=== PATIENT | female | born 1995 ===

== ENCOUNTER 2017-10-10 23:12 | Emergency (ER) | payer SELFPAY ==
[2017-10-10 23:21] VITALS: RESP 16
[2017-10-11] MEDS ORDERED: AZITHROMYCIN 250 MG TAB PO ONE (00:02)
--- NOTE | 2017-10-11 00:19 | EDPHY ---
H & P Time Seen by Provider: 10/10/17 23:24 HPI/ROS: This patient was playing co-ed soccer when a male player inadvertently ran into her right orbital region with shoulder. This occurred earlier in the night she initially had moderate pain and brief diplopia. The diplopia resolved after several minutes and she reported a moderate ache to the right periorbital region without other symptoms until she blew her nose and noticed immediate "puffiness" that resulted in the infraorbital region. Patient had 6/10 pain initially that diminish to 4/10 after taking 400 mg of ibuprofen prior to arrival. This prompted her visit for further evaluation. Her boyfriend drove her in by private vehicle for evaluation. ROS: Constitutional: No complaints HEENT: No nasal injury. No other complaints. No persistent vision changes. Neuro: No generalized headache. No confusion. No numbness or tingling that she initially had paresthesias for few minutes after the injury they have resolved. Musculoskeletal: No neck pain or back pain. No extremity injuries. Integumentary: No lacerations or abrasions. 7 point ROS is otherwise negative. Past Medical/Surgical History: Otherwise healthy Smoking Status: Never smoked Physical Exam: Physical exam: Vital signs are normal General: Patient is in no acute distress. HEENT: Patient has mild right periorbital swelling and infraorbital and tenderness. No zygoma tenderness. No nasal tenderness or ecchymosis. No epistaxis. Ears: Clear bilaterally with no hemotympanum. Oropharynx: No dental trauma or malocclusion. No intraoral lacerations. Eyes: Visual acuity is 20/20 OS, 20/40 on injured I the patient reports that 20 /40 is baseline for her right eye. There is no hyphema. Pupils are equal and reactive to light. Extraocular motions are intact. She does not have diplopia with upward gaze or other extraocular motions at this time. Optic fundi: Clear with no papilledema or hemorrhage. Neck: Trachea is midline with no stridor. The patient has no midline neck tenderness and retains a full range of motion without increase in pain. Lungs: Clear to auscultation bilaterally Cardiac: Regular rate and rhythm no murmur gallop or rub. Chest: Nontender. Abdomen: Soft nontender no organomegaly Back: Nontender Extremities: Atraumatic Neuro: GCS of 15. Cranial nerves II through XII intact. No sensory or motor deficits are appreciated. Initial differential diagnosis: Periorbital hematoma, orbital floor blowout fracture, ocular injury Constitutional: Initial Vital Signs Temperature (C) 36.8 C 10/10/17 23:19 Heart Rate 62 10/10/17 23:19 Respiratory Rate 16 10/10/17 23:19 Blood Pressure 115/71 10/10/17 23:19 O2 Sat (%) 94 10/10/17 23:19 O2 Delivery Mode Room Air Allergies/Adverse Reactions: cat dander Allergy (Intermediate, Verified 10/10/17 23:22) dog dander Allergy (Intermediate, Verified 10/10/17 23:22) pollen extracts Allergy (Intermediate, Verified 10/10/17 23:22) Home Medications: Medication Instructions Recorded Allergy Shots 10/10/17 Azithromycin [Zithromax] 250 mg PO DAILY #4 tab 10/11/17 MDM/Departure - MDM Diagnostics: CT facial without contrast: Positive orbital floor fracture without entrapment. I discussed these images with Dr. Bennett and also reviewed the myself. Imaging: Discussed imaging studies w/ medical billing supervisor Radiologist Medications Given: Discontinued Medications Azithromycin (Zithromax) 500 mg PO EDNOW ONE PRN Reason: Protocol Stop: 10/11/17 00:03 Last Admin: 10/11/17 00:10 Dose: 500 mg ED Course/Re-evaluation: Zithromax p.o. Patient declined any other analgesics besides the ibuprofen she took prior to arrival. I counseled the patient regarding orbital floor fracture. Reviewed the images and CT with her. I counseled her to avoid blowing her nose for the next couple weeks. No evidence of entrapment. She does not have evidence of significant head injury/concussion associated with this. No evidence tonight of significant ocular injury. She will take Zithromax antibiotic ibuprofen Tylenol for discomfort and follow up this week with Ophthalmology further I evaluation. She understands need to return emergency department should she developed diplopia, unbearable headache, numbness or other concerns. Answered all of her questions prior to discharge home. - Depart Disposition: Home, Routine, Self-Care Clinical Impression: Orbital floor fracture Qualifiers: Encounter type: initial encounter Fracture type: closed Laterality: right Qualified Code(s): S02.31XA - Fracture of orbital floor, right side, initial encounter for closed fracture Condition: Good Instructions: Facial Fracture (ED) Additional Instructions: Diagnosis: Right orbital floor fracture Plan: Do not blood your nose for the next 2 weeks. Ibuprofen and Tylenol for discomfort as needed Zithromax antibiotic Call the toolroom clerk listed below to arrange for a follow-up appointment sometime within this week. Return if you develop double vision, other change in vision, unbearable pain or other concerns. Prescriptions: Azithromycin [Zithromax] 250 mg PO DAILY #4 tab Referrals: Vladislav Joseph MD [Medical Doctor] - As per Instructions
[2017-10-11 00:41] VITALS: BP 110/59; PULSE 60; TEMP 97.9; O2SAT 95
== END 2017-10-11 00:30 | disposition home or self-care (01) ==
LOC: CED 23:12
DX: S02.31XA Fracture of orbital floor, right side, initial encounter for closed fracture (principal); W51.XXXA Accidental striking against or bumped into by another person, initial encounter; Y99.8 Other external cause status; Y93.66 Activity, soccer
CPT/HCPCS: 70486-PO